=== PATIENT | female | born 1930 | race Caucasian/White ===

== ENCOUNTER → 2017-06-17 | Outpatient (CLI) | payer MEDICARE ==
[~2017-06-17] MED LIST: ATOR10TA PO; BIMA2.5D4 OP; DOXY100T61 PO; EYE; EYE DROPS
--- NOTE | 2017-06-17 15:17 | Diagnostic Imaging Report ---
INDICATION: Weight loss, tobacco abuse. PA and lateral chest. FINDINGS: Heart size and pulmonary vascularity are normal. Lungs are clear. There are no effusions or pneumothoraces. IMPRESSION: No acute abnormalities in the chest. No appreciable interval change compared to 03/10/2011. Dictated by: Dictated on workstation # [id number]
== END ==
LOC: RAD 14:07
PROVIDERS: ATTEND Family Medicine
DX: R63.4 Abnormal weight loss (principal); R05 Cough; Z72.0 Tobacco use
CPT/HCPCS: 71046

== ENCOUNTER → 2017-06-23 | Outpatient (CLI) | payer MEDICARE ==
--- NOTE | 2017-06-23 13:01 | Diagnostic Imaging Report ---
PROCEDURE: US Thyroid. TECHNIQUE: Multiple real-time grayscale images were obtained of the thyroid in various projections. INDICATION: Abnormal thyroid function tests. FINDINGS: The right thyroid lobe measured 4.0 x 1.9 x 1.5 cm; the left lobe 4.1 x 1.8 x 1.2 cm. There are multiple tiny bilateral predominantly cystic thyroid nodules. The largest mass is in the right thyroid lobe measuring 1.2 cm in long axis and is a cyst with a small amount of nonvascularized internal debris and minimal septation. The largest nodule in the left lobe is a 3 mm cyst. IMPRESSION: Bilateral benign predominantly cystic thyroid nodules. No dominant soft tissue density or vascularized mass. Dictated by: Dictated on workstation # [id number]
== END ==
LOC: RAD 10:48
PROVIDERS: ATTEND Family Medicine
DX: E04.2 Nontoxic multinodular goiter (principal)
CPT/HCPCS: 76536

== ENCOUNTER 2018-09-09 05:14 | Inpatient (IN) | payer MEDICARE ==
[~2018-09-09] VITALS: Ht 165.1 cm; Wt 46.0 kg
[2018-09-09] VITALS (7 sets, daily range): BP systolic 92–194; BP diastolic 55–133
--- OUTSIDE RECORDS SUMMARY | 2018-09-09 05:19 | XMS REPORT | Continuity of Care Document ---
Author Author [facility] Organization [facility] Address Unknown Phone Unavailable Allergies Active Description Code Type Severity Reaction Onset Reported/Identified Relationship to Patient Clinical Status Yes levofloxacin [id number] Drug Allergy Mild N/A 06/26/2009 Yes tomato [id number] Drug Allergy Mild N/A 06/27/2009 Yes codeine [id number] Drug Allergy Unknown N/A 03/10/2011 Medications There is no data. Problems Date Dx Coded Attending Type Code Diagnosis Diagnosed By 02/19/2014 TONYA FISCHER MD Ot 724.2 LUMBAGO 02/19/2014 TONYA FISCHER MD Ot 724.4 LUMBOSACRAL NEURITIS NOS 02/19/2014 TONYA FISCHER MD Ot 959.19 OTH INJURY OF OTHER SITES OF TRUNK 02/19/2014 TONYA FISCHER MD Ot E000.8 OTHER EXTERNAL CAUSE STATUS 02/19/2014 TONYA FISCHER MD Ot E849.0 ACCIDENT IN HOME 02/19/2014 TONYA FISCHER MD Ot E888.9 FALL NOS 11/07/2014 NAILA MINER, DOMINIC S Ot 733.00 11/07/2014 NIDHINDDAVID MINER, DOMINIC S Ot 733.00 11/08/2014 NAILA MINER DOMINIC S Ot 733.00 11/30/2014 NIDHINDDAVID MINER, DOMINIC S Ot 733.00 12/14/2014 NAILA MINER, DOMINIC S Ot 784.0 12/15/2014 NAILA MINER, DOMINIC S Ot 784.0 06/20/2017 CARLITA NORIEGA MD Ot 719.45 JOINT PAIN-PELVIS 06/20/2017 CARLITA NORIEGA MD Ot V43.64 HIP JOINT REPLACEMENT STATUS 06/20/2017 IRIS JUARES DOQUELINE S Ot 733.00 OSTEOPOROSIS NOS 06/20/2017 IRIS JUARES DOQUELINE S Ot 784.0 HEADACHE 06/20/2017 NIDHINDER DOHAVENDOMINIC S Ot R05 COUGH 06/20/2017 NIDHINDER DO, DOMINIC S Ot R63.4 ABNORMAL WEIGHT LOSS 06/20/2017 NIDHINDER DO, DOMINIC S Ot Z72.0 TOBACCO USE 07/03/2017 NIDHINDER DO, DOMINIC S Ot R05 COUGH 07/03/2017 ORENDER DO, DOMINIC S Ot R63.4 ABNORMAL WEIGHT LOSS 07/03/2017 NIDHINDER DO, DOMINIC S Ot Z72.0 TOBACCO USE 07/10/2017 NIDHINDER DO, DOMINIC S Ot R05 COUGH 07/10/2017 NIDHINDER DO, DOMINIC S Ot R63.4 ABNORMAL WEIGHT LOSS 07/10/2017 NIDHINDER DO, DOMINIC S Ot Z72.0 TOBACCO USE 07/15/2017 NIDHIND DO, DOMINIC S Ot E04.2 NONTOXIC MULTINODULAR GOITER 07/23/2017 NIDHIND , DOMINIC S Ot E04.2 NONTOXIC MULTINODULAR GOITER Procedures There is no data. Results There is no data. Encounters ACCT No. Visit Date/Time Discharge Status Pt. Type Provider Facility Loc./Unit Complaint [id number] 06/23/2017 10:48:00 06/23/2017 23:59:59 CLS Outpatient HAVEN JUARES DOLINE S [facility] RAD R94.6 [id number] 06/17/2017 14:07:00 06/17/2017 23:59:59 CLS Outpatient NIDHINDER IRIS MINERDOMINIC S [facility] RAD R05 [id number] 11/23/2014 11:49:00 11/23/2014 23:59:59 CLS Outpatient NIDHINDER DOIRISDOMINIC S [facility] RAD CEPHALGIA [id number] 11/03/2014 09:14:00 11/03/2014 23:59:59 CLS Outpatient NIDHINDER DO DOMINIC S [facility] RAD OSTEOPOROSIS [id number] 02/19/2014 10:50:00 02/19/2014 14:38:00 DIS Emergency AALIYAH RUELAS, TONYA Reddy [facility] ER FALL [id number] 12/16/2013 12:04:00 12/16/2013 23:59:59 CLS Outpatient LEANN RUELAS, CARLITA [facility] CARD HIP PAIN, 07/201708/13/2018 23:06:51 08/13/2018 23:59:59 CLS Outpatient Dominic Juares 07/201611/15/2016 20:04:07 11/15/2016 23:59:59 CLS Outpatient Dominic Juares [facility] 11/23/2014 11:49:38 ACT Document Registration
[2018-09-09] MEDS ORDERED: RT-ALBUTEROL/IPRATROPIUM 3 ML (DUONEB) VIAL ONE (05:20)
[2018-09-09] MEDS ORDERED: RT-IPRATROPIUM (ATROVENT) 0.5MG/2.5ML AMP IH ONE (05:28)
[2018-09-09] MEDS ORDERED: RT-ALBUTEROL SULF 2.5 MG/3 ML PRE-MIX VIAL ONE (05:28)
[2018-09-09] MEDS ORDERED: RT-ALBUTEROL/IPRATROPIUM 3 ML (DUONEB) VIAL INH ONE ×2 (05:30→05:45)
[2018-09-09] MEDS ORDERED: RT-ALBUTEROL SULF 2.5 MG/3 ML PRE-MIX VIAL INH STA ×2 (05:32→08:01)
[2018-09-09 05:39] LABS: BASOPHILS % (AUTO) 0 % (0-10); EOSINOPHILS # (AUTO) 0.2 10^3/uL (0.0-0.3); EOSINOPHILS % (AUTO) 2 % (0-10); HEMATOCRIT 45 % (35-52); HEMOGLOBIN 15.3 G/DL (11.5-16.0); LYMPHOCYTES # (AUTO) 2.3 X 10^3 (1.0-4.0); LYMPHOCYTES % (AUTO) 21 % (12-44); MEAN CORPUSCULAR HEMOGLOBIN 33 PG (25-34); MEAN CORPUSCULAR HGB CONC 34 G/DL (32-36); MEAN CORPUSCULAR VOLUME 99 FL (80-99); MEAN PLATELET VOLUME 9.9 FL (7.4-10.4); MONOCYTES # (AUTO) 0.8 X 10^3 (0.0-1.0); MONOCYTES % (AUTO) 8 % (0-12); NEUTROPHILS # (AUTO) 7.6 X 10^3 (1.8-7.8); NEUTROPHILS % (AUTO) 70 % (42-75); PLATELET COUNT 303 10^3/uL (130-400); RED CELL DISTRIBUTION WIDTH 14.3 % (10.0-14.5); WHITE BLOOD COUNT 10.8 10^3/uL (4.3-11.0)
[2018-09-09] MEDS ORDERED: methylPREDNISolone 125 MG (Solu-MEDROL) VIAL IVP ONE ×2 (05:45→11:00)
--- NOTE | 2018-09-09 05:49 | ED Respiratory ---
General Chief Complaint: Respiratory Problems Stated Complaint: SOB Nursing Triage Note: PT PRESENTS FORM HOME, STATES SHE DEGAN TO HAVE SOA AT REST THAT BEGAN 1-2 HOURS AGO THAT AWOKE HER FROM SLEEP Source: patient, family Exam Limitations: no limitations (GRAY COSME MD) History of Present Illness Date Seen by Provider: Sep 09, 2018 Time Seen by Provider: 05:20 Initial Comments This 88-year-old woman presents to the emergency room accompanied by her by private vehicle with complaints of shortness of air. She is noticed to have tight expiratory wheezing and using accessory muscles for expiration. She denies known history of COPD. She denies significant cough or any fever. She reports symptoms throughout the day yesterday. She has some degree of dementia and is therefore a challenging historian. provides the history. Oxygen saturation on room air was 89 percent. (GRAY COSME MD) Allergies and Home Medications Allergies Coded Allergies: Levofloxacin (Unverified Allergy, Mild, 06/26/09) Tomato (Unverified Allergy, Mild, 06/27/09) Codeine (Unverified Allergy, 03/10/11) Home Medications Atorvastatin Calcium 10 Mg Tablet, 5 MG PO DAILY, (Reported) Bimatoprost 2.5 Ml Drops, 2.5 ML OP HS, (Reported) Patient Home Medication List Home Medication List Reviewed: Yes (GRAY COSME MD) Review of Systems Review of Systems Constitutional: no symptoms reported EENTM: no symptoms reported Respiratory: see HPI Cardiovascular: no symptoms reported Gastrointestinal: no symptoms reported Genitourinary: no symptoms reported : No Musculoskeletal: no symptoms reported Skin: no symptoms reported Psychiatric/Neurological: No Symptoms Reported Hematologic/Lymphatic: No Symptoms Reported Immunological/Allergic: no symptoms reported (GRAY COSME MD) Past Dofctlk-Vqnxgh-Gcgmuh Hx Patient Social History Recent Foreign Travel: No Contact w/Someone Who Travel: No Recent Infectious Disease Expo: No Recent Hopitalizations: Yes (BLADDER REPAIR) (GRAY COSME MD) Immunizations Up To Date Date of Influenza Vaccine: Apr 09, 2011 (GRAY COSME MD) Past Medical History Surgeries: Yes (GALLBLADDER, GLAUCOMA, BLADDER REPAIR, HYSTERECTOMY) Respiratory: No Cardiac: Yes (LOW BP) Neurological: No : No Reproductive Disorders: No 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 oz. 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, no motor/sensory deficits, alert, normal mood/affect Skin: normal color, warm/dry (GRAY COSME MD) Progress/Results/Core Measures Suspected Sepsis Recent Fever Within 48 Hours: No Infection Criteria Present: None New/Unexplained Altered Menta: No Sepsis Screen: No Definite Risk SIRS Temperature:98.1 Pulse: 116 Respiratory Rate: 22 Laboratory Tests 09/09/18 05:21: White Blood Count 10.8 Blood Pressure 194 /113 Mean: 140 Laboratory Tests 09/09/18 05:21: Creatinine 0.84, Platelet Count 303, Total Bilirubin 0.5 (GRAY COSME MD) Results/Orders Lab Results Laboratory Tests Test 09/09/18 05:21 Range/Units White Blood Count 10.8 4.3-11.0 10^3/uL Red Blood Count 4.60 4.35-5.85 10^6/uL Hemoglobin 15.3 11.5-16.0 G/DL Hematocrit 45 35-52 % Mean Corpuscular Volume 99 80-99 FL Mean Corpuscular Hemoglobin 33 25-34 PG Mean Corpuscular Hemoglobin Concent 34 32-36 G/DL Red Cell Distribution Width 14.3 10.0-14.5 % Platelet Count 303 130-400 10^3/uL Mean Platelet Volume 9.9 7.4-10.4 FL Neutrophils (%) (Auto) 70 42-75 % Lymphocytes (%) (Auto) 21 12-44 % Monocytes (%) (Auto) 8 0-12 % Eosinophils (%) (Auto) 2 0-10 % Basophils (%) (Auto) 0 0-10 % Neutrophils # (Auto) 7.6 1.8-7.8 X 10^3 Lymphocytes # (Auto) 2.3 1.0-4.0 X 10^3 Monocytes # (Auto) 0.8 0.0-1.0 X 10^3 Eosinophils # (Auto) 0.2 0.0-0.3 10^3/uL Basophils # (Auto) 0.0 0.0-0.1 10^3/uL Sodium Level 136 135-145 MMOL/L Potassium Level 4.1 3.6-5.0 MMOL/L Chloride Level 101 98-107 MMOL/L Carbon Dioxide Level 26 21-32 MMOL/L Anion Gap 9 5-14 MMOL/L Blood Urea Nitrogen 19 H 7-18 MG/DL Creatinine 0.84 0.60-1.30 MG/DL Estimat Glomerular Filtration Rate > 60 BUN/Creatinine Ratio 23 Glucose Level 181 H 70-105 MG/DL Calcium Level 10.1 8.5-10.1 MG/DL Corrected Calcium 8.5-10.1 MG/DL Total Bilirubin 0.5 0.1-1.0 MG/DL Aspartate Amino Transf (AST/SGOT) 22 5-34 U/L Alanine Aminotransferase (ALT/SGPT) 17 0-55 U/L Alkaline Phosphatase 88 40-136 U/L C-Reactive Protein High Sensitivity 0.05 0.00-0.50 MG/DL Total Protein 7.6 6.4-8.2 GM/DL Albumin 4.7 H 3.2-4.5 GM/DL (LYSSA MCKEON MD) Micro Results Microbiology 09/09/18 Influenza Types A,B Antigen (MARY ALICE) - Final, Complete (LYSSA MCKEON MD) My Orders Orders - LYSSA MCKEON MD Albuterol Pre-Mix Nebs (Rt) (Proventil (09/09/18 08:01) Svn Small Volume Nebulizer (09/09/18 08:01) General/Regular (09/09/18 Breakfast) Methylprednisolone Sod Succ (Solu-Medrol (09/09/18 11:00) (LYSSA MCKEON MD) Medications Given in ED Current Medications Medications Dose Ordered Sig/Deborah Route Start Time Stop Time Status Last Admin Dose Admin Albuterol/ Ipratropium 3 ml ONCE ONCE INH 09/09/18 05:30 09/09/18 05:31 DC 09/09/18 05:23 3 ML Albuterol/ Ipratropium 3 ml ONCE ONCE INH 09/09/18 05:45 09/09/18 05:46 DC 09/09/18 05:34 3 ML Methylprednisolone Sodium Succinate 62.5 mg ONCE ONCE IVP 09/09/18 05:45 09/09/18 05:46 DC 09/09/18 06:21 62.5 MG (LYSSA MCKOEN MD) Vital Signs/I&O 09/09/18 09/09/18 09/09/18 09/09/18 05:14 05:15 05:23 05:34 Temp 98.1 Pulse 116 104 Resp 22 17 B/P (MAP) 194/113 (140) Pulse Ox 89 89 99 98 O2 Delivery Room Air Room Air Nasal Cannula O2 Flow Rate 2.00 40.00 09/09/18 09/09/18 07:41 09:52 Pulse 98 98 Resp 18 18 B/P (MAP) 93/64 (74) 92/55 (67) Pulse Ox 93 95 O2 Delivery Room Air Nasal Cannula O2 Flow Rate 2.00 (LYSSA MCKEON MD) Vital Signs/I&O Capillary Refill : Less Than 3 Seconds (GRAY COSME MD) Blood Pressure Mean: 140 Progress Note : Time: 06:44 Progress Note Patient received a DuoNeb treatment and this is being followed with an hour- long breathing treatment. Solu-Medrol was ordered. BiPAP was initiated due to significant increased work of breathing with accessory muscle use and prolonged expiratory phase. Care of this patient is being transferred to Dr. Mckeon at this time. Although patient states she has no history of COPD, emphysematous changes on x-ray and patient's presentation would suggest otherwise. (GRAY COSME MD) Progress Note : Progress Note 0715: I have reexamined the patient. She is currently on BiPAP and tolerating well without wheezing. O2 sats 97%. She has completed her one-hour treatment. She states she feels better. We will give her a little bit more time and then trialed her off BiPAP to see if she tolerates. She would prefer not to be admitted if possible although understands that admission may be required. Continue to monitor. 0800: Patient off BiPAP. She tolerated for about 15 minutes before starting to have declining O2 saturation. Ultimately went to 88% on room air. Normal and not on oxygen. Placed on 2 L via nasal cannula which did help significantly. 0815: Albuterol neb ordered. 0900: Patient will report admission but there are no beds here currently. We will see if we can capture inpatient bed and try to hold in the emergency department. This was discussed with patient and family who agreed. We will continue Solu-Medrol every 6 hours and albuterol treatments every 4 hours as needed. Continue to monitor. 1052: I will be able to admit her to the hospital here. I did discuss the case with Dr. Juares. She accepts patient for admission, inpatient status. Solu-Medrol 62.5 mg IV now. We will continue the every 6 hours. Patient and family agree with plan. (LYSSA MCKEON MD) ECG Initial ECG Impression Date: Sep 09, 2018 Initial ECG Impression Time: 05:21 Initial ECG Rate: 109 Initial ECG Rhythm: S.Tach Comment Sinus tachycardia with no ST elevation or depression. Probable LVH. No abnormal intervals. (GRAY COSME MD) Diagnostic Imaging Diagonstic Imaging: Xray Plain Films/CT/US/NM/MRI: chest Comments Chest x-ray viewed by me and report reviewed. See report below: NAME: [facility] REC#: [id number] PT STATUS: REG ER : 1932 PHYSICIAN: GRAY COSME MD ADMIT DATE: 09/09/18/ER Draft Date of Exam:09/09/18 CHEST 1 VIEW, AP/PA ONLY INDICATION: Dyspnea. Portable upright AP view of the chest is obtained with comparison made study of 06/17/2017. FINDINGS: Air trapping is again seen bilaterally. There are prominent interstitial markings throughout the lungs, however, no pneumothorax or consolidation is identified. There is no evidence of pleural fluid. There may be mild left basilar atelectasis. IMPRESSION: Emphysema with left basilar atelectasis. Otherwise, no acute abnormality or adverse change is seen. Dictated on workstation # [id number] Dict: 09/09/18 0606 Trans: 09/09/18 0611 [id number] Interpreted by: JONATHAN HOUSTON MD (GRAY COSME MD) Diagonstic Imaging: Xray Plain Films/CT/US/NM/MRI: chest Reviewed: Reviewed by Me (LYSSA MCKEON MD) Departure Communication (Admissions) Time/Spoke to Admitting Phy: 10:52 (LYSSA MCKEON MD) Impression Primary Impression: COPD exacerbation Additional Impressions: Respiratory distress Hypoxia Disposition: ADMITTED INPATIENT Condition: Stable Admissions Decision to Admit Reason: Admit from ER (General) Decision to Admit/Date: Sep 09, 2018 Time/Decision to Admit Time: 10:52 (LYSSA MCKEON MD) Departure-Patient Inst. Referrals: DOMINIC JUARES DO (PCP/Family) Primary Care Physician GRAY COSME MD Sep 09, 2018 05:49 LYSSA MCKEON MD Sep 09, 2018 07:18
[2018-09-09 05:56] LABS: ALANINE AMINOTRANSFERASE 17 U/L (0-55); ALBUMIN 4.7 GM/DL (3.2-4.5); ALKALINE PHOSPHATASE 88 U/L (40-136); BILIRUBIN,TOTAL 0.5 MG/DL (0.1-1.0); BUN/CREATININE RATIO 23; CALCIUM 10.1 MG/DL (8.5-10.1); CARBON DIOXIDE 26 MMOL/L (21-32); CHLORIDE 101 MMOL/L (98-107); CREATININE SERUM 0.84 MG/DL (0.60-1.30); GFR ESTIMATED > 60; GLUCOSE 181 MG/DL (70-105); POTASSIUM 4.1 MMOL/L (3.6-5.0); SODIUM 136 MMOL/L (135-145); TOTAL PROTEIN 7.6 GM/DL (6.4-8.2)
--- NOTE | 2018-09-09 06:11 | Diagnostic Imaging Report ---
INDICATION: Dyspnea. Portable upright AP view of the chest is obtained with comparison made study of 06/17/2017. FINDINGS: Air trapping is again seen bilaterally. There are prominent interstitial markings throughout the lungs, however, no pneumothorax or consolidation is identified. There is no evidence of pleural fluid. There may be mild left basilar atelectasis. IMPRESSION: Emphysema with left basilar atelectasis. Otherwise, no acute abnormality or adverse change is seen. Dictated by: Dictated on workstation # [id number]
--- NOTE | 2018-09-09 06:49 | NUR ---
REPORT GIVEN TO KEVYN VAUGHN
--- NOTE | 2018-09-09 07:07 | NUR ---
CALLED RT TO TAKE PATIENT OFF BI JOSE AT 730
--- NOTE | 2018-09-09 07:31 | NUR ---
RT HERE TO REMOVE BI JOSE
--- NOTE | 2018-09-09 07:42 | NUR ---
REMOVED FROM JOSE 0742 SAO2 DOWN TO 90% DR MCKEON AWARE PLACED ON 2L NC 0755 SAO2 98% AT 2 L
--- NOTE | 2018-09-09 08:05 | NUR ---
WILL ORDER FOOD TRAY
--- NOTE | 2018-09-09 10:02 | NUR ---
TO ROOM NO CHANGE TOLERATING NC AT 2 L
--- NOTE | 2018-09-09 10:06 | NUR ---
PATIENT AND AWARE THAT WE ARE WATING FOR ROOM TO BE COME AVAILABLE
--- NOTE | 2018-09-09 10:28 | NUR ---
B/P 89/55 DR MCKEON AWARE AND OK WITH.
--- OUTSIDE RECORDS SUMMARY | 2018-09-09 11:15 | XMS REPORT | Continuity of Care Document ---
Author Author [facility] Organization [facility] Address Unknown Phone Unavailable Allergies Active Description Code Type Severity Reaction Onset Reported/Identified Relationship to Patient Clinical Status Yes levofloxacin [id number] Drug Allergy Mild N/A 06/26/2009 Yes tomato [id number] Drug Allergy Mild N/A 06/27/2009 Yes codeine [id number] Drug Allergy Unknown N/A 03/10/2011 Medications There [...] V43.64 HIP JOINT REPLACEMENT STATUS 06/20/2017 IRIS YOO DOQUELINE S Ot 733.00 OSTEOPOROSIS NOS 06/20/2017 IRIS YOO DOQUELINE S Ot 784.0 HEADACHE 06/20/2017 NIDHINDER DOMINIC MINER Ot R05 COUGH 06/20/2017 NIDHINDER , DOMINIC S Ot R63.4 ABNORMAL WEIGHT LOSS 06/20/2017 NIDHINDER , DOMINIC Victor Ot Z72.0 TOBACCO USE 07/03/2017 NIDHINDER , DOMINIC S Ot R05 COUGH 07/03/2017 NIDHINDER , DOMINIC S Ot R63.4 ABNORMAL WEIGHT LOSS 07/03/2017 NIDHINDER , DOMINIC S Ot Z72.0 TOBACCO USE 07/10/2017 NIDHINDER , DOMINIC S Ot R05 COUGH 07/10/2017 NIDHINDER , DOMINIC Victor Ot R63.4 ABNORMAL WEIGHT LOSS 07/10/2017 NIDHINDER , DOMINIC S Ot Z72.0 TOBACCO USE 07/15/2017 NIDHINDER DOMINIC MINER Ot E04.2 NONTOXIC MULTINODULAR GOITER 07/23/2017 NIDHIND DOMINIC MINER S Ot E04.2 NONTOXIC MULTINODULAR GOITER Procedures There is no data. Results Test Result Range Complete blood count (CBC) with automated white blood cell (WBC) differential - 09/09/18 05:21 Blood leukocytes automated count (number/volume) 10.8 10*3/uL 4.3-11.0 Blood erythrocytes automated count (number/volume) 4.60 10*6/uL 4.35-5.85 Venous blood hemoglobin measurement (mass/volume) 15.3 g/dL 11.5-16.0 Blood hematocrit (volume fraction) 45 % 35-52 Automated erythrocyte mean corpuscular volume 99 [foz_us] 80-99 Automated erythrocyte mean corpuscular hemoglobin (mass per erythrocyte) 33 pg 25-34 Automated erythrocyte mean corpuscular hemoglobin concentration measurement ( mass/volume) 34 g/dL 32-36 Automated erythrocyte distribution width ratio 14.3 % 10.0-14.5 Automated blood platelet count (count/volume) 303 10*3/uL 130-400 Automated blood platelet mean volume measurement 9.9 [foz_us] 7.4-10.4 Automated blood neutrophils/100 leukocytes 70 % 42-75 Automated blood lymphocytes/100 leukocytes 21 % 12-44 Blood monocytes/100 leukocytes 8 % 0-12 Automated blood eosinophils/100 leukocytes 2 % 0-10 Automated blood basophils/100 leukocytes 0 % 0-10 Blood neutrophils automated count (number/volume) 7.6 10*3 1.8-7.8 Blood lymphocytes automated count (number/volume) 2.3 10*3 1.0-4.0 Blood monocytes automated count (number/volume) 0.8 10*3 0.0-1.0 Automated eosinophil count 0.2 10*3/uL 0.0-0.3 Automated blood basophil count (count/volume) 0.0 10*3/uL 0.0-0.1 Influenza virus A and B antigen detection - 09/09/18 05:21 FLU RESULT NEGATIVE FOR INFLUENZA A AND B ANTIGENS BY IA [facility] Comprehensive metabolic panel - 09/09/18 05:21 Serum or plasma sodium measurement (moles/volume) 136 mmol/L 135-145 Serum or plasma potassium measurement (moles/volume) 4.1 mmol/L 3.6-5.0 Serum or plasma chloride measurement (moles/volume) 101 mmol/L 98-107 Carbon dioxide 26 mmol/L 21-32 Serum or plasma anion gap determination (moles/volume) 9 mmol/L 5-14 Serum or plasma urea nitrogen measurement (mass/volume) 19 mg/dL 7-18 Serum or plasma creatinine measurement (mass/volume) 0.84 mg/dL 0.60-1.30 Serum or plasma urea nitrogen/creatinine mass ratio 23 [facility] Serum or plasma creatinine measurement with calculation of estimated glomerular filtration rate > [facility] Serum or plasma glucose measurement (mass/volume) 181 mg/dL 70-105 Serum or plasma calcium measurement (mass/volume) 10.1 mg/dL 8.5-10.1 Serum or plasma total bilirubin measurement (mass/volume) 0.5 mg/dL 0.1-1.0 Serum or plasma alkaline phosphatase measurement (enzymatic activity/volume) 88 U/L 40-136 Serum or plasma aspartate aminotransferase measurement (enzymatic activity/ volume) 22 U/L 5-34 Serum or plasma alanine aminotransferase measurement (enzymatic activity/volume ) 17 U/L 0-55 Serum or plasma protein measurement (mass/volume) 7.6 g/dL 6.4-8.2 Serum or plasma albumin measurement (mass/volume) 4.7 g/dL 3.2-4.5 Serum or plasma C reactive protein measurement (mass/volume) - 09/09/18 05:21 Serum or plasma C reactive protein measurement (mass/volume) 0.05 mg /dL 0.00-0.50 Encounters ACCT No. Visit Date/Time Discharge Status Pt. Type Provider Facility Loc./Unit Complaint [id number] 06/23/2017 10:48:00 06/23/2017 23:59:59 CLS Outpatient ORENDER DO, DOMINIC S [facility] RAD R94.6 [id number] 06/17/2017 14:07:00 06/17/2017 23:59:59 CLS Outpatient ORENDER DO, DOMINIC S [facility] RAD R05 [id number] 11/23/2014 11:49:00 11/23/2014 23:59:59 CLS Outpatient ORENDER DO, DOMINIC S [facility] RAD CEPHALGIA [id number] 11/03/2014 09:14:00 11/03/2014 23:59:59 CLS Outpatient ORENDER DO, DOMINIC S [facility] RAD OSTEOPOROSIS [id number] 02/19/2014 10:50:00 02/19/2014 14:38:00 DIS Emergency AALIYAH RUELAS, TONYA Reddy [facility] ER FALL [id number] 12/16/2013 12:04:00 12/16/2013 23:59:59 CLS Outpatient LEANN RUELAS, CARLITA Herrera [facility] CARD HIP PAIN, [id number] 09/09/2018 05:42:00 Document Registration 07/201708/13/2018 23:06:51 08/13/2018 23:59:59 CLS Outpatient Orender, Dominic S. 07/201611/15/2016 20:04:07 11/15/2016 23:59:59 CLS Outpatient Orender, Dominic S. [id number] 11/23/2014 11:49:38 ACT Document Registration
[2018-09-09] MEDS ORDERED: CATHETER FLUSH 10 ML SYR IV PRN (12:15)
[2018-09-09] MEDS ORDERED: MULT-178 PO (12:33)
[2018-09-09] MEDS ORDERED: DONE10TA41 PO (12:33)
[2018-09-09] MEDS ORDERED: ASCO-262 PO (12:33)
[2018-09-09] MEDS ORDERED: VITA400C60 PO (12:33)
[2018-09-09] MEDS ORDERED: AMLO5TAB9 PO (12:33)
[2018-09-09] MEDS ORDERED: BIMA2.5D5 OU (12:37)
[2018-09-09] MEDS ORDERED: RT-ALBUTEROL/IPRATROPIUM 3 ML (DUONEB) VIAL INH PRN (14:00)
[2018-09-09] MEDS: RT-ALBUTEROL/IPRATROPIUM 3 ML (DUONEB) VIAL INH SCH ×3 (14:21→21:52)
[2018-09-09] MEDS: CATHETER FLUSH 10 ML SYR IV SCH ×2 (14:40→21:28)
--- NOTE | 2018-09-09 16:22 | NUR ---
PATIENT SITTING IN ROOM WITH O2 ON. STAFF SMELLED SMOKE AND WENT TO INVESTIGATE. STAFF OBSERVED RESIDENT WITH A CIGARETTE IN HER HAND THAT WAS LIT. THIS RN TALKED WITH PATIENT ABOUT WHY SHE CANT SMOKE IN THE HOSPITAL, AND REMINDED HER OF HER DIAGNOSIS. PATIENT VERBALIZES UNDERSTANDING OF THIS. CIGARETTES WERE TAKEN AND LOCKED IN CABINET IN PATIENT ROOM. THIS RN OFFERED PATIENT NICOTINE PATCH. PATIENT REFUSED PATCH AND STATED THAT SHE WILL BE GOING HOME SOON THE DR COMES IN BECAUSE SHE IS FEELING MUCH BETTER.
[2018-09-09] MEDS ORDERED: ALPRAZolam 0.25 MG (XANAX) TAB PO PRN (16:45)
[2018-09-09] MEDS: methylPREDNISolone 125 MG (Solu-MEDROL) VIAL IV SCH ×2 (18:07→23:26)
[2018-09-09] MEDS ORDERED: ACETAMINOPHEN 325 MG TABLET PO PRN (18:45)
[2018-09-10] VITALS (7 sets, daily range): BP systolic 103–156; BP diastolic 52–84
[2018-09-10] MEDS: RT-ALBUTEROL/IPRATROPIUM 3 ML (DUONEB) VIAL INH SCH ×6 (03:01→23:59)
[2018-09-10 04:34] LABS: BASOPHILS % (AUTO) 0 % (0-10); EOSINOPHILS % (AUTO) 0 % (0-10); HEMATOCRIT 35 % (35-52); HEMOGLOBIN 12.1 G/DL (11.5-16.0); LYMPHOCYTES # (AUTO) 0.7 X 10^3 (1.0-4.0); LYMPHOCYTES % (AUTO) 6 % (12-44); MEAN CORPUSCULAR HEMOGLOBIN 33 PG (25-34); MEAN CORPUSCULAR HGB CONC 35 G/DL (32-36); MEAN CORPUSCULAR VOLUME 96 FL (80-99); MEAN PLATELET VOLUME 10.3 FL (7.4-10.4); MONOCYTES # (AUTO) 0.4 X 10^3 (0.0-1.0); MONOCYTES % (AUTO) 3 % (0-12); NEUTROPHILS # (AUTO) 11.3 X 10^3 (1.8-7.8); NEUTROPHILS % (AUTO) 91 % (42-75); PLATELET COUNT 230 10^3/uL (130-400); RED CELL DISTRIBUTION WIDTH 13.9 % (10.0-14.5); WHITE BLOOD COUNT 12.4 10^3/uL (4.3-11.0)
[2018-09-10 04:53] LABS: BAND NEUTROPHILS 0 %; BASOPHILS % (MANUAL) 0 %; EOSINOPHILS % (MANUAL) 0 %; LYMPHOCYTES % (MANUAL) 5 %; MONOCYTES % (MANUAL) 1 %; NEUTROPHILS % (MANUAL) 94 %; RBC MORPH NORMAL
[2018-09-10 04:58] LABS: ALBUMIN 3.9 GM/DL (3.2-4.5); BILIRUBIN,TOTAL 0.5 MG/DL (0.1-1.0); CALCIUM 9.7 MG/DL (8.5-10.1); CREATININE SERUM 1.41 MG/DL (0.60-1.30); POTASSIUM 3.8 MMOL/L (3.6-5.0); TOTAL PROTEIN 6.1 GM/DL (6.4-8.2)
[2018-09-10] MEDS: CATHETER FLUSH 10 ML SYR IV SCH ×3 (05:32→23:22)
[2018-09-10] MEDS: methylPREDNISolone 125 MG (Solu-MEDROL) VIAL IV SCH ×4 (05:32→23:45)
[2018-09-10] MEDS ORDERED: IPRA3AMP31 INH (13:00)
[2018-09-10] MEDS ORDERED: PRD20T PO (13:00)
--- NOTE | 2018-09-10 13:01 | Discharge Inst-Simple/Standard ---
Discharge Inst-Standard Discharge Medications New, Converted or Re-Newed RX: Transmitted to Pharmacy Patient Instructions/Follow Up Plan of Care/Instructions/FU: Fwup 1 week Activity as Tolerated: Yes Discharge Diet: No Restrictions DOMINIC YOO DO Sep 10, 2018 13:01
--- NOTE | 2018-09-10 14:15 | NUR ---
Pastoral care visit.
--- NOTE | 2018-09-10 14:19 | NUR ---
patient did not desat below 90% at rest or on exertion.
[2018-09-11] MEDS: RT-ALBUTEROL/IPRATROPIUM 3 ML (DUONEB) VIAL INH SCH ×3 (02:33→10:37)
[2018-09-11 05:05] VITALS: BP 107/59
[2018-09-11] MEDS: CATHETER FLUSH 10 ML SYR IV SCH (05:09)
[2018-09-11] MEDS: methylPREDNISolone 125 MG (Solu-MEDROL) VIAL IV SCH (05:09)
--- NOTE | 2018-09-11 06:34 | NUR ---
PT REQUESTED TYLENOL FOR SORE THROAT-PRN TYLENOL GIVEN
[2018-09-11] MEDS ORDERED: CHLORASEPTIC LOZENGE MM PRN (06:50)
--- NOTE | 2018-09-11 06:51 | NUR ---
THIS RN CONTACTED DR. YOO ABOUT THIS PT C/O HAVING A SORE THROAT-ORDER RECEIVED FOR PRN CHLORASEPTIC LOZENGES
[2018-09-11 08:00] VITALS: BP 132/62
--- NOTE | 2018-09-11 08:24 | History & Physicial ---
History of Present Illness History of Present Illness Reason for visit/HPI This is a 88 year old female with COPD and ongoing tobacco abuse who was brought to the emergency room with shortness of air. She was acutely dyspneic upon arrival with accessory respiratory muscle use and had an oxygen saturation of 89% on Room Air. She was initially placed on BiPAP and given IV solumedrol as well as nebulizer treatments with duoneb. She was much improved after these treatments and was able to be placed on oxygen via a NC so it was decided to admit her for further IV solumedrol as well as oxygen and nebulizer treatments. She was also very hypertensive on admit but this improved with treatment of her acute respiratory distress. Date of Admission Sep 09, 2018 at 11:06 Date Seen by a Provider: Sep 09, 2018 Time Seen by a Provider: 18:15 I consulted on this patient on 09/09/2018 18:15PM Attending Physician Shereen Juares DO Admitting Physician Shereen Juares DO Consult Allergies and Home Medications Allergies Coded Allergies: levofloxacin (Unverified Allergy, Mild, 06/26/09) tomato (Unverified Allergy, Mild, 06/27/09) codeine (Unverified Allergy, Unknown, 09/09/18) Home Medications Bimatoprost 2.5 Ml Drops, 1 DROP OU HS, (Reported) Donepezil HCl 10 Mg Tablet, 10 MG PO HS, (Reported) Ipratropium/Albuterol Sulfate 3 Ml Ampul.neb, 3 ML INH RTQ4HR Prescribed by: SHEREEN JUARES on 09/10/18 1300 Multivitamin 1 Each Tablet, 1 TAB PO DAILY, (Reported) Prednisone 20 Mg Tab, 0 PO BID Prescribed by: SHEREEN JUARES on 09/10/18 1300 Patient Home Medication List Home Medication List Reviewed: Yes Past Wmojojh-Tekbrn-Olyrgn Hx Patient Social History Marrital Status: Recent Foreign Travel: No Contact w/other who traveled: No Recent Hopitalizations: Yes (BLADDER REPAIR) Recent Infectious Disease Expo: No Immunizations Up To Date Date of Pneumonia Vaccine: Apr 09, 2009 Date of Influenza Vaccine: Apr 09, 2011 Surgeries Yes (GALLBLADDER, GLAUCOMA, BLADDER REPAIR, HYSTERECTOMY) Respiratory No Cardiovascular Yes (LOW BP) Neurological No Reproductive System : No Hx Reproductive Disorders: No Sexually 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 Genitourinary No Gastrointestinal No Musculoskeletal Yes Degenerate Disk Disease, Arthritis, Chronic Back Pain Endocrine History of Endocrine Disorders: No HEENT History of HEENT Disorders: No Cancer Yes (SALAVARY GLAND) Psychosocial History of Psychiatric Problem: No Blood Transfusions History of Blood Disorders: No Review of Systems Constitutional: weakness, weight loss EENTM: No see HPI, No no symptoms reported, No ear discharge, No hearing loss, No ear pain, No blurred vision, No double vision, No eye pain, No tearing, No vision loss, No dental problems, No hoarseness, No mouth pain, No mouth swelling , No epistaxis, No nose congestion, No nose pain, No throat pain, No throat swelling, No other Respiratory: cough, dyspnea on exertion, short of breath, wheezing Cardiovascular: No no symptoms reported, No see HPI, No chest pain, No edema, No Hx of Intervention, No palpitations, No syncope, No vascular heart diseas, No other Gastrointestinal: loss of appetite Genitourinary: No no symptoms reported, No see HPI, No decreased output, No discharge, No dysuria, No frequency, No hematuria, No hesitancy, No incontinence , No nocturia, No pain, No other Musculoskeletal: joint pain, muscle weakness Skin: No no symptoms reported, No see HPI, No change in color, No change in hair/nails, No dryness, No hx of skin cancer, No lesions, No lumps, No pruritus , No rash, No other Psychiatric/Neurological: Weakness, Other (dementia) Physical Exam Vital Signs Vital Signs - First Documented 09/09/18 09/09/18 09/09/18 05:14 05:23 13:36 Temp 98.1 Pulse 116 Resp 22 B/P (MAP) 194/113 (140) Pulse Ox 89 O2 Delivery Room Air O2 Flow Rate 2.00 FiO2 21 Capillary Refill : Less Than 3 Seconds Height, Weight, BMI Height: 5'65.00" Weight: 101lbs. 5.0oz. 45.757303hz; 15.8 BMI Method:Stated General Appearance: No Apparent Distress HEENT: Pharynx Normal Respiratory: Decreased Breath Sounds Cardiovascular: Regular Rate, Rhythm Gastrointestinal: Normal Bowel Sounds, Non Tender, Soft Rectal: Deferred Back: No CVA Tenderness Extremity: Non Tender, No Calf Tenderness, No Pedal Edema Neurologic/Psychiatric: Alert Skin: Warm/Dry Lymphatic: No Adenopathy Comments Microbiology 09/09/18 Influenza Types A,B Antigen (MARY ALICE) - Final, Complete Assessment/Plan Assessment and Plan 1. Acute Respiratory Distress with Acute Exacerbation of COPD and Hypoxia-- admit on oxygen, IV solumedrol, SVNS with duoneb 2. Hypertension--hold BP meds and monitor BP in response to oxygen and treatment of respiratory distress 3. 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
--- NOTE | 2018-09-11 08:36 | Progress Note (SOAP) ---
Subjective Date Seen by a Provider: Sep 10, 2018 Time Seen by a Provider: 12:30 Subjective/Events-last exam Fwup acute respiratory distress, COPD with acute exacerbation, Hypoxia, Dementia. Sitting up in chair without oxygen. Appetite good. Slept well and BP good this morning. Objective Exam Vital Signs Date Time Temp Pulse Resp B/P (MAP) Pulse Ox O2 Delivery O2 Flow Rate FiO2 09/11/18 08:00 98.7 111 18 132/62 (85) 94 Room Air 09/11/18 07:34 94 Room Air 09/11/18 05:05 98.4 92 20 107/59 (75) 96 Room Air 09/11/18 02:34 91 Room Air 09/10/18 23:59 93 Room Air 09/10/18 22:52 98.0 90 20 130/62 (84) 96 Room Air 09/10/18 20:06 97.9 101 20 156/84 (108) 94 Room Air 09/10/18 20:00 Room Air 09/10/18 18:55 92 Room Air 09/10/18 16:51 98.5 101 19 110/68 (82) 96 Room Air 09/10/18 15:20 94 Room Air 09/10/18 14:16 95 1.00 09/10/18 12:00 98.8 103 20 105/66 (79) 94 Room Air 09/10/18 11:20 95 Nasal Cannula 1.00 I & O 09/11/18 07:00 Intake Total 2270 ml Output Total 1050 ml Balance 1220 ml Capillary Refill : Less Than 3 Seconds General Appearance: No Apparent Distress Neck: Supple Respiratory: Lungs Clear, Decreased Breath Sounds Cardiovascular: Regular Rate, Rhythm Extremity: Non Tender, No Calf Tenderness, No Pedal Edema Neurologic/Psychiatric: Alert Skin: Warm/Dry Results Lab Microbiology 09/09/18 Influenza Types A,B Antigen (MARY ALICE) - Final, Complete Assessment/Plan Assessment/Plan Assess & Plan/Chief Complaint 1. Acute Respiratory Distress with Hypoxia--currently off oxygen and respiratory preparing for walk test/home oxygen qualifier 2. COPD with Acute exacerbation--on IV solumedrol and SVNS with duoneb 3. Dementia w/o Behavior Disturbances--back on aricept 4. Anorexia--appetite good Clinical Quality Measures Admission Status Admission Dx 1. Acute Respiratory Distress with Acute Exacerbation of COPD and Hypoxia-- admit on oxygen, IV solumedrol, SVNS with duoneb 2. Hypertension--hold BP meds and monitor BP in response to oxygen and treatment of respiratory distress 3. 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
--- NOTE | 2018-09-11 13:49 | Discharge Summary ---
Diagnosis/Chief Complaint Date of Admission Sep 09, 2018 at 11:06 Date of Discharge Sep 11, 2018 at 10:55 Discharge Date: Sep 11, 2018 Discharge Diagnosis 1. Acute Respiratory Distress with Hypoxia--improved 2. COPD with Acute exacerbation--improved 3. Vascular Dementia w/o Behavior Disturbances--back on aricept 4. Anorexia--appetite improved in hospital Reason Hospital Visit This is a 88 year old female with COPD and ongoing tobacco abuse who was brought to the emergency room with shortness of air. She was acutely dyspneic upon arrival with accessory respiratory muscle use and had an oxygen saturation of 89% on Room Air. She was initially placed on BiPAP and given IV solumedrol as well as nebulizer treatments with duoneb. She was much improved after these treatments and was able to be placed on oxygen via a NC so it was decided to admit her for further IV solumedrol as well as oxygen and nebulizer treatments. She was also very hypertensive on admit but this improved with treatment of her acute respiratory distress. Discharge Summary Hospital Course Hospital Course This is a 88 year old female with COPD and ongoing tobacco abuse who was brought to the emergency room with shortness of air. She was acutely dyspneic upon arrival with accessory respiratory muscle use and had an oxygen saturation of 89% on Room Air. She was initially placed on BiPAP and given IV solumedrol as well as nebulizer treatments with duoneb. She was much improved after these treatments and was able to be placed on oxygen via a NC so it was decided to admit her for further IV solumedrol as well as oxygen and nebulizer treatments. She was also very hypertensive on admit but this improved with treatment of her acute respiratory distress. She was admitted to the medical floor on IV solumedrol, SVNS with duoneb q4hrs and oxygen at 2L NC. After 24hrs her oxygen was discontinued and a home oxygen qualifier test was done. She did not desaturation below 90% on room air or with exertion. An overnight pulse ox was also done prior to discharge and the patient did not desaturate below 90% on that test either. However, she did not sleep much during the overnight test. Her blood pressure also remained stable after admisison without any BP meds. At this time she is off of oxygen and has no respiratory distress. She is awake and her lung aeration is improved. She is going to be discharged home on a prednisone taper and continue SVNS with duoneb q4hrs during the day. She will follow up with me in my office in 1 week and we will discuss another overnight pulse ox as an outpatient. Labs Laboratory Tests 09/09/18 05:21: Blood Urea Nitrogen 19H, Glucose Level 181H, Albumin 4.7H 09/10/18 04:10: Blood Urea Nitrogen 47H, Glucose Level 147H, White Blood Count 12.4H, Red Blood Count 3.65L, Neutrophils (%) (Auto) 91H, Lymphocytes (%) (Auto) 6L, Neutrophils # (Auto) 11.3H, Lymphocytes # (Auto) 0.7L, Sodium Level 131L, Chloride Level 97L , Creatinine 1.41H, Total Protein 6.1L Procedures None. Discharge Physical Examination Allergies: Coded Allergies: levofloxacin (Unverified Allergy, Mild, 06/26/09) tomato (Unverified Allergy, Mild, 06/27/09) codeine (Unverified Allergy, Unknown, 09/09/18) Vitals & I&Os Vital Signs Date Time Temp Pulse Resp B/P (MAP) Pulse Ox O2 Delivery O2 Flow Rate FiO2 09/11/18 13:14 09/11/18 10:37 94 Room Air 09/11/18 08:00 98.7 111 18 09/10/18 14:16 1.00 09/09/18 13:36 21 General Appearance: Alert, No Acute Distress Respiratory: Clear to Auscultation Cardiovascular: Regular Rate Extremities: No Clubbing, No Cyanosis, No Edema Psych/Mental Status: Mood NL Discharge Home Medications Reviewed and agree with Discharge Medication list on patient's Discharge Instruction sheet Instructions to Patient/Family Please see electronic discharge instructions given to patient. Clinical Quality Measures DVT/VTE Risk/Contraindication: Risk Factor Score Per Nursin RFS Level Per Nursing on Admit: 4+=Very High DOMINIC YOO DO Sep 11, 2018 13:49
== END 2018-09-11 10:55 | disposition home or self-care (01) | DRG 192 ==
LOC: EDUNIT# 05:14 → ER 05:15 → 4TH 11:06
PROVIDERS: ADMIT Family Medicine; ATTEND Family Medicine
DX: J43.9 Emphysema, unspecified (principal); R06.03 Acute respiratory distress; R09.02 Hypoxemia; F01.50 Vascular dementia, unspecified severity, without behavioral disturbance, psychotic disturbance, mood disturbance, and anxiety; R03.1 Nonspecific low blood-pressure reading; F17.210 Nicotine dependence, cigarettes, uncomplicated; I10 Essential (primary) hypertension; M19.91 Primary osteoarthritis, unspecified site; R63.0 Anorexia; M54.9 Dorsalgia, unspecified; Z85.858 Personal history of malignant neoplasm of other endocrine glands
CPT/HCPCS: 36415; 71045; 80053; 85007; 85025; 85027; 86141; 87804; 93041; 94640; 94664; 94760; 94761; 94762; 96374; 96376

== ENCOUNTER 2020-02-07 10:10 | Emergency (ER) | payer MEDICARE ==
[~2020-02-07] VITALS: Ht 167.7 cm; Wt 58.2 kg
[~2020-02-07 10:10] MED LIST changes: +AMLO5TAB9 PO; +ASCO-262 PO; +BIMA2.5D5 OU; +DONE10TA41 PO; +IPRA3AMP31 INH; +MULT-178 PO; +PRD20T PO; +VITA400C60 PO
[2020-02-07 10:50] VITALS: BP 151/112
[2020-02-07 12:33] LABS: BASOPHILS # (AUTO) 0.1 10^3/uL (0.0-0.1); BASOPHILS % (AUTO) 1 % (0-10); EOSINOPHILS # (AUTO) 0.2 10^3/uL (0.0-0.3); EOSINOPHILS % (AUTO) 3 % (0-10); HEMATOCRIT 46 % (35-52); HEMOGLOBIN 15.1 G/DL (11.5-16.0); LYMPHOCYTES # (AUTO) 2.2 X 10^3 (1.0-4.0); LYMPHOCYTES % (AUTO) 33 % (12-44); MEAN CORPUSCULAR HEMOGLOBIN 32 PG (25-34); MEAN CORPUSCULAR HGB CONC 33 G/DL (32-36); MEAN CORPUSCULAR VOLUME 97 FL (80-99); MEAN PLATELET VOLUME 10.7 FL (7.4-10.4); MONOCYTES # (AUTO) 0.8 X 10^3 (0.0-1.0); MONOCYTES % (AUTO) 12 % (0-12); NEUTROPHILS # (AUTO) 3.5 X 10^3 (1.8-7.8); NEUTROPHILS % (AUTO) 51 % (42-75); PLATELET COUNT 274 10^3/uL (130-400); WHITE BLOOD COUNT 6.8 10^3/uL (4.3-11.0)
--- NOTE | 2020-02-07 12:33 | ED General ---
General Chief Complaint: Cardiac/General Problems Stated Complaint: HIGH BP Nursing Triage Note: Assisted pt via ED w/c to room #7 with c/o HTN. Vlbfffih-nu-bio reports pt hx advanced dementia et requests to remain at pt side in exam room. vp foundation aware et agrees. Zgwnqugs-hp-hqw reports continuous high blood pressure readings for unknown length of time. Rrjekdhb-ie-sbq reports pt "ran out" of her IH albuterol et has been experiencing wheezes to bilat lung rios. Ocmgfupf-kg-eyi reports pt is not presribed any cardiac medications. Pt A&OX3 at this time. Nursing Sepsis Screen: No Definite Risk Source of Information: Patient Exam Limitations: No Limitations History of Present Illness Date Seen by Provider: Feb 07, 2020 Time Seen by Provider: 12:04 Initial Comments Here with parent episode of elevated blood pressure. Does have history of COPD and does still smoke occasionally. Has albuterol nebulizers at home but hasn't really used that. She was noted to have somewhat elevated blood pressure this morning by her and they wanted her checked out. Patient's vaoraibj-ho-oet is with her currently as patient has dementia. She is known to me personally and is a patient. Patient does have advancing dementia and low pressure that is labile and hyper responsive even to low dose antihypertensive is. She is currently in no distress with normal blood pressure after resting. Patient is not really complaining of any discomfort. Patient's ykahvrys-sk-gfv has asked that we would can consider DuoNeb treatments at home when necessary. Otherwise no report of chest pain, weakness, fever or other concerns. Patient is happy and appropriate and was glad to see me as the practitioner. Timing/Duration: 1-3 Hours, Changing Over Time, Gone Now Severity: Mild Associated Systoms: No Chest Pain, No Cough, No Fever/Chills, No Nausea/Vomiting; Shortness of Air, Weakness Allergies and Home Medications Allergies Coded Allergies: levofloxacin (Unverified Allergy, Mild, 06/26/09) tomato (Unverified Allergy, Mild, 06/27/09) codeine (Unverified Allergy, Unknown, 09/09/18) Home Medications Bimatoprost 2.5 Ml Drops, 1 DROP OU HS, (Reported) Donepezil HCl 10 Mg Tablet, 10 MG PO HS, (Reported) Ipratropium/Albuterol Sulfate 3 Ml Ampul.neb, 3 ML INH RTQ4HR Prescribed by: DOMINIC YOO on 09/10/18 1300 Ipratropium/Albuterol Sulfate 3 Ml Ampul.neb, 3 ML IH Q6H PRN for SHORTNESS OF BREATH Prescribed by: LYSSA MCKEON on 02/07/20 1246 Multivitamin 1 Each Tablet, 1 TAB PO DAILY, (Reported) Prednisone 20 Mg Tab, 0 PO BID Prescribed by: DOMINIC YOO on 09/10/18 1300 Patient Home Medication List Home Medication List Reviewed: Yes Review of Systems Review of Systems Constitutional: see HPI; No chills, No fever EENTM: no symptoms reported Respiratory: see HPI, short of breath, wheezing Cardiovascular: No chest pain, No edema Gastrointestinal: No abdominal pain, No nausea, No vomiting Psychiatric/Neurological: See HPI Past Njpuxzi-Mdtaen-Vozalc Hx Past Med/Social Hx: Reviewed Nursing Past Med/Soc Hx Patient Social History Alcohol Use: Denies Use Recreational Drug Use: No Smoking Status: Former Smoker Type Used: Cigarettes 2nd Hand Smoke Exposure: No Recent Foreign Travel: No Contact w/Someone Who Travel: No Recent Infectious Disease Expo: No Recent Hopitalizations: Yes (BLADDER REPAIR) Immunizations Up To Date Date of Pneumonia Vaccine: Apr 09, 2009 Date of Influenza Vaccine: Apr 09, 2011 Past Medical History Surgeries: Yes (GALLBLADDER, GLAUCOMA, BLADDER REPAIR, HYSTERECTOMY) Respiratory: No Cardiac: Yes (LOW BP) Hypertension Neurological: No 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 5.0oz. 45.643863fc; 20.00 BMI Method:Stated General Appearance: No Apparent Distress, WD/WN Neck: Non Tender, Supple Respiratory: No Respiratory Distress, Wheezing (few trace scattered wheezes) Cardiovascular: Regular Rate, Rhythm, No Murmur Gastrointestinal: Non Tender, Soft Neurologic/Psychiatric: Alert, Oriented x3, Normal Mood/Affect Skin: Normal Color, Warm/Dry Progress/Results/Core Measures Suspected Sepsis Recent Fever Within 48 Hours: No Infection Criteria Present: None New/Unexplained Altered Menta: No Sepsis Screen: No Definite Risk SIRS Temperature: Pulse: 98 Respiratory Rate: 18 Laboratory Tests 02/07/20 11:00: White Blood Count 6.8 Blood Pressure 151 /112 Mean: 125 Laboratory Tests 02/07/20 11:00: Creatinine 1.24, Platelet Count 274, Total Bilirubin 0.6 Results/Orders Lab Results Laboratory Tests Test 02/07/20 11:00 Range/Units White Blood Count 6.8 4.3-11.0 10^3/uL Red Blood Count 4.76 4.35-5.85 10^6/uL Hemoglobin 15.1 11.5-16.0 G/DL Hematocrit 46 35-52 % Mean Corpuscular Volume 97 80-99 FL Mean Corpuscular Hemoglobin 32 25-34 PG Mean Corpuscular Hemoglobin Concent 33 32-36 G/DL Red Cell Distribution Width 15.0 H 10.0-14.5 % Platelet Count 274 130-400 10^3/uL Mean Platelet Volume 10.7 H 7.4-10.4 FL Neutrophils (%) (Auto) 51 42-75 % Lymphocytes (%) (Auto) 33 12-44 % Monocytes (%) (Auto) 12 0-12 % Eosinophils (%) (Auto) 3 0-10 % Basophils (%) (Auto) 1 0-10 % Neutrophils # (Auto) 3.5 1.8-7.8 X 10^3 Lymphocytes # (Auto) 2.2 1.0-4.0 X 10^3 Monocytes # (Auto) 0.8 0.0-1.0 X 10^3 Eosinophils # (Auto) 0.2 0.0-0.3 10^3/uL Basophils # (Auto) 0.1 0.0-0.1 10^3/uL Sodium Level 137 135-145 MMOL/L Potassium Level 4.5 3.6-5.0 MMOL/L Chloride Level 100 98-107 MMOL/L Carbon Dioxide Level 28 21-32 MMOL/L Anion Gap 9 5-14 MMOL/L Blood Urea Nitrogen 26 H 7-18 MG/DL Creatinine 1.24 0.60-1.30 MG/DL Estimat Glomerular Filtration Rate 41 BUN/Creatinine Ratio 21 Glucose Level 101 70-105 MG/DL Calcium Level 9.7 8.5-10.1 MG/DL Corrected Calcium 9.5 8.5-10.1 MG/DL Total Bilirubin 0.6 0.1-1.0 MG/DL Aspartate Amino Transf (AST/SGOT) 27 5-34 U/L Alanine Aminotransferase (ALT/SGPT) 27 0-55 U/L Alkaline Phosphatase 80 40-136 U/L Total Protein 7.3 6.4-8.2 GM/DL Albumin 4.3 3.2-4.5 GM/DL My Orders Orders - LYSSA MCKEON MD Cbc With Automated Diff (02/07/20 12:27) Comprehensive Metabolic Panel (02/07/20 12:27) Vital Signs/I&O 02/07/20 10:50 Temp 37.2 Pulse 98 Resp 18 B/P (MAP) 151/112 (125) Pulse Ox 96 O2 Delivery Room Air Capillary Refill : Less Than 3 Seconds Blood Pressure Mean: 125 Progress Note : Progress Note Seen and evaluated. EKG and basic labs ordered. No acute findings. I did talk at length with the patient's liljkbsg-gx-pyr. I have ordered DuoNeb treatments when necessary outpatient and prescription was sent. She was appreciative. We did discuss blood pressure and the ffckxely-mc-kqv is not concerned overall nor [place]. Patient is also not concerned. Discharged home with return precautions. Patient and family verbalize understanding instructions and agreement with plan. ECG Initial ECG Impression Date: Feb 07, 2020 Initial ECG Impression Time: 11:24 Initial ECG Rate: 93 Initial ECG Rhythm: Normal Sinus Comment Sinus rhythm with leftward axis. PVC noted. Similar to previous of 09/09/18. Interpreted by me. Departure Impression Primary Impression: Bronchitis, chronic Qualified Codes: J42 - Unspecified chronic bronchitis Disposition: 01 HOME, SELF-CARE Condition: Stable Departure-Patient Inst. Decision time for Depature: 12:39 Referrals: DOMINIC YOO DO (PCP/Family) Primary Care Physician Patient Instructions: Chronic Obstructive Pulmonary Disease (COPD), Including Emphysema Add. Discharge Instructions: All discharge instructions reviewed with patient and/or family. Voiced understanding. Use your nebulizer treatment at least twice daily over the next few days but you may use it up to 4 times daily as needed for shortness of breath. Follow-up with your Dr. in a few days for recheck as needed. Return for increasing shortness of breath, fever, chills, vomiting or other concerns as needed. You do have blood pressure that varies and is not concerning unless it is 200/120 or greater. If it does get to that level and remains or if you're having chest pain or other problems with that, return to the emergency department. Scripts Ipratropium/Albuterol Sulfate (Iprat-Albut 0.5-3(2.5) mg/3 ml) 3 Ml Ampul.neb 3 ML IH Q6H PRN for SHORTNESS OF BREATH, #50 EA 0 Refills Prov: LYSSA MCKEON MD 02/07/20 LYSSA MCKEON MD Feb 07, 2020 12:33
[2020-02-07 12:38] LABS: ALBUMIN 4.3 GM/DL (3.2-4.5)
[2020-02-07 12:39] LABS: POTASSIUM 4.5 MMOL/L (3.6-5.0)
[2020-02-07 12:40] LABS: CALCIUM 9.7 MG/DL (8.5-10.1)
[2020-02-07 12:41] LABS: TOTAL PROTEIN 7.3 GM/DL (6.4-8.2)
[2020-02-07 12:43] LABS: BILIRUBIN,TOTAL 0.6 MG/DL (0.1-1.0)
[2020-02-07 12:44] LABS: CREATININE SERUM 1.24 MG/DL (0.60-1.30)
[2020-02-07] MEDS ORDERED: IPRA3AMP31 IH (12:46)
== END 2020-02-07 12:50 | disposition home or self-care (01) ==
LOC: EDUNIT# 10:10 → ER 10:11
DX: J42 Unspecified chronic bronchitis (principal); Z88.5 Allergy status to narcotic agent; Z88.1 Allergy status to other antibiotic agents; Z87.891 Personal history of nicotine dependence; Z85.818 Personal history of malignant neoplasm of other sites of lip, oral cavity, and pharynx; Z79.52 Long term (current) use of systemic steroids
CPT/HCPCS: 36415; 80053; 85025; 93005

== ENCOUNTER → 2020-09-04 | Outpatient (CLI) | payer MEDICARE ==
[~2020-09-04] MED LIST changes: +AMLO-250 PO; -AMLO5TAB9 PO; +IPRA3AMP31 IH
== END ==
LOC: CARD 11:04
PROVIDERS: ATTEND Family Medicine
DX: R07.9 Chest pain, unspecified (principal); R00.2 Palpitations; R06.00 Dyspnea, unspecified
CPT/HCPCS: 93005; 93306

== ENCOUNTER → 2020-09-22 | Outpatient (CLI) | payer MEDICARE | LOC: CARD 10:13 | PROVIDERS: ATTEND Family Medicine | DX: R94.31 Abnormal electrocardiogram [ECG] [EKG] (principal) | CPT/HCPCS: 93225; 93226 ==